=== PATIENT | male | born 1985 | race Caucasian/White ===

== ENCOUNTER → 2021-12-11 11:25 | Outpatient (BNVA) | payer MEDICAID, SELFPAY | PROVIDERS: Family Provider Internal Medicine Cardiovascular Disease; Visit Provider Family Medicine | DX: Z68.30 Body mass index [BMI] 30.0-30.9, adult (principal); F15.11 Other stimulant abuse, in remission; F10.91 Alcohol use, unspecified, in remission; F41.9 Anxiety disorder, unspecified; F17.200 Nicotine dependence, unspecified, uncomplicated | CPT/HCPCS: 80053; 80061; 85025 ==

== ENCOUNTER 2021-12-29 13:43 | Emergency (ER) | payer MEDICAID, SELFPAY ==
[2021-12-29 14:01] VITALS: BP 133/72; PULSE 91; RESP 18; TEMP 36.4; O2SAT 98
--- NOTE | 2021-12-29 14:29 | ED_ITS ---
HPI - Back Pain/Injury General: Chief Complaint: Back Pain/Injury Stated Complaint: Back pain Time Seen by Provider: 12/29/21 14:11 History of Present Illness: Patient is a 36-year-old male comes to the ED with lower back pain. Symptoms started approximately a week ago. He denies any injury or trauma. He woke up 1 morning with the lower back pain. Pain radiates down into his left thigh. He rates his pain currently a 9 out of 10. Denies any weakness to lower extremities, pelvic anesthesia or any bladder or bowel incontinence. Associated symptoms: Deny abdominal pain, chills, dysuria, fatigue, fever(s), hematuria, nausea or vomiting Review of Systems Const: Denies: fever(s), chills or fatigue Eyes: Denies: change in vision or eye discomfort ENMT: Denies: throat pain, odynophagia, nasal discharge or nasal congestion Card: Denies: chest pain, palpitations, edema, swelling of feet/ankles, dyspnea on exertion or orthopnea Resp: Denies: dyspnea, productive cough or non-productive cough GI: Denies: abdominal pain, nausea, vomiting, diarrhea, constipation or hematochezia : Denies: flank pain, difficulty urinating, dysuria or hematuria Musc: Reports: back pain; Denies: neck pain or extremity swelling Skin/Breast: Denies: rash or new lesions Neuro: Denies: headache(s), numbness in extremities or weakness in extremities PFS ED PFSH: Medical History Methamphetamine abuse in remission Methamphetamine addiction Family History Grandmother Cancer colon Mother Diabetes Father CAD (coronary artery disease) Denies family history of Clotting disorder Dementia Hyperlipidemia Chronic kidney disease (CKD) Anesthesia complication Bleeding disorder Lung disease Hypertension Stroke Social History Smoking and tobacco status: current every day smoker (3 cigarettes) cigarettes [ Other cigarette details: started at 12yo. currently 1/ PPD. 24PY] Alcohol intake: former Year of sobriety/quit date alcohol: 2021 Former alcohol use details: oanh of alcohol/day x 5 years. stopped 06/27. stopped due to girlfriend. Desire information about alcohol rehabilitation?: No Counseling given: No Desire information about substance/drug rehabilitation?: No Counseling given: No Lives independently: Yes service: No Current occupational status: unemployed History of recent travel: No Current gender identity: Male Physical Exam Const: COMMON NORMALS: no acute distress, patient oriented x3 and alert GENERAL APPEARANCE: cooperative and comfortable HENMT: COMMON NORMALS: normocephalic HEAD & SCALP: normocephalic MOUTH: Normal oral and palatal mucosa present THROAT: posterior oropharynx normal and uvula midline Neck/C-Spine: COMMON NORMALS: supple GENERAL: Yes normal visual inspection Resp: COMMON NORMALS: normal respiratory effort, No retractions, No use of accessory muscles and clear to auscultation bilaterally AUSCULTATION: clear to auscultation bilaterally Cardio: COMMON NORMALS: regular rate, regular rhythm, S1 normal heart sound present, S2 normal heart sound present, No gallops present (Cardio), No clicks present (Cardio), No murmurs present (Cardio) and Peripheral pulses 2+ throughout RATE: regular rate RHYTHM: regular rhythm HEART SOUNDS: S1 normal heart sound present and S2 normal heart sound present PERIPHERAL PULSES: Peripheral pulses 2+ throughout GI: COMMON NORMALS: Normal to inspection, nondistended, normoactive bowel sounds present, Soft to palpation, non-tender and no masses PALPATION: Yes Soft to palpation : COMMON NORMALS: Yes no CVA tenderness BLADDER/KIDNEY EXAM: Yes no CVA tenderness Back/Pelvis: COMMON NORMALS: no CVA tenderness LUMBAR SPINE/LOWER BACK: Yes paraspinal muscle tenderness Lumbar paraspinal muscle tenderness: bilateral Bilateral lumbar paraspinal muscle tenderness: L4 and L5 Extremity: COMMON NORMALS: normal to inspection Neuro: COMMON NORMALS: patient oriented x3 SENSORIUM/ORIENTATION: Yes alert GAIT: Yes Normal gait present Skin: GENERAL SKIN EXAM: dry skin Course Vital Signs: Vital signs: Vital Signs Temperature 97.5 F L 12/29/21 14:01 Pulse Rate 91 12/29/21 14:01 Respiratory Rate 18 12/29/21 14:01 Blood Pressure 133/72 12/29/21 14:01 Pulse Oximetry 98 12/29/21 14:01 Oxygen Delivery Me thod 12/29/21 14:01 MDM - Back Pain/Injury Medical Decision Making Patient is a 36-year-old male comes to the ED with lower back pain. Symptoms started approximately a week ago. He denies any injury or trauma. He woke up 1 morning with the lower back pain. Pain radiates down into his left thigh. He rates his pain currently a 9 out of 10. Denies any weakness to lower extremities, pelvic anesthesia or any bladder or bowel incontinence. Vitals are stable. Exam shows some bilateral lumbar paraspinal muscle tenderness but rest of exam is benign. Patient was given a dose of Decadron, Toradol and Norflex here in the ED. He is diagnosed with lumbar radiculopathy and discharged home with a prescription for Celebrex, Flexeril and Medrol Dosepak. Told to follow- up with PCP within the next week for reevaluation. Return ED precautions given. Patient understood and agreed with plan. Discharge Plan Discharge Patient Disposition: Home Clinical Impression: Lumbar radiculopathy Condition: Stable Prescriptions: New Celebrex 100 mg capsule 100 mg PO BID PRN (Reason: pain) Qty: 20 0RF Medrol (Leandro) 4 mg tablets,dose pack See Rx Instructions .ROUTE .COMPLEX Qty: 21 0RF Rx Instructions: orally per package directions cyclobenzaprine 10 mg tablet 10 mg PO BID PRN (Reason: muscle spasm) Qty: 20 0RF Discharge Orders: Discharge ED (Routine); Ordered 12/29/21 Ordered By: Christiano Aviles Referrals: Dyllan Salgado MD [Primary Care Provider] - Discharge Diet: Regular Discharge Activity: Increase activity as tolerated Patient Instructions: Lumbar Radiculopathy (ED) Activity Restrictions/Additional Instructions: Follow-up with medical provider as directed. Take medications as prescribed. Return to the ER or your medical provider if condition worsens. Please read and understand discharge instructions. Thank you for choosing [facility] for your healthcare needs today. Please realize this is an emergency room and that we are providing you with a medical screening exam and this may not be complete and all inclusive of all the testing and or work up that you may need to determine your ailment or severity of your illness. It is very important that you follow up as instructed or that you return to the Emergency Department should you have concerns or if your condition changes or worsens in any way. Coding Level of Care Code ED Vaccine Specialist for Juliana Fwela Exam Comprehensive
[2021-12-29] MEDS: dexamethasone 10 mg/mL INJ IM (14:44)
[2021-12-29] MEDS: orphenadrine 30 mg/mL Inj 2 mL 60 MG IM (14:44)
[2021-12-29] MEDS: ketorolac 60 mg/2 mL INJ IM (14:44)
== END 2021-12-29 15:08 | disposition home or self-care (01) ==
PROVIDERS: Emergency Provider Physician Assistant; PCP Internal Medicine Cardiovascular Disease
DX: M54.16 Radiculopathy, lumbar region (principal); F17.210 Nicotine dependence, cigarettes, uncomplicated
CPT/HCPCS: 96372; 99284; J1100; J1885; J2360

== ENCOUNTER 2022-07-01 09:53 | Outpatient (CLI) | payer MEDICAID, SELFPAY ==
--- NOTE | 2022-07-01 09:58 | XR_ITS ---
WS: [id number] Exam: XR hip RT 2-3V wo/w pel* [id number] Date/Time of Exam: 07/01/2022 9:58 AM Reason For Exam: R hip pain Comparison 01/21/2006 There is moderate degenerative thinning of the joint compartment. No fracture or dislocation. Capsula r calcification noted along the superior acetabulum. XR/XR hip RT 2-3V wo/w pel* [id number] IMPRESSION: 1. Moderate degenerative narrowing of the joint compartment. No fracture or dis location. Articular capsular calcification along the superior lateral acetabulu m.
== END 2022-07-01 09:54 | disposition home or self-care (01) ==
LOC: RAD 09:58
PROVIDERS: PCP Family Medicine; Visit Provider Family Medicine
DX: M25.551 Pain in right hip (principal)
CPT/HCPCS: 73502

== ENCOUNTER → 2022-07-27 10:50 | Outpatient (BNVA) | payer MEDICAID, SELFPAY | PROVIDERS: PCP Family Medicine; Referring Provider Family Medicine; Visit Provider Specialist | DX: M16.11 Unilateral primary osteoarthritis, right hip (principal) | CPT/HCPCS: 73502 ==

== ENCOUNTER 2022-10-19 16:41 | Emergency (ER) | payer MEDICAID, SELFPAY ==
[2022-10-19 17:06] VITALS: BP 159/90; PULSE 121; RESP 20; TEMP 37.9; O2SAT 97; BMI 29.5
--- NOTE | 2022-10-19 17:30 | W.ED.EXTPRO ---
Documented by User: Stevan Mckenzie DO 10/20/22 08:13 HPI - Extremity Problem General: Chief complaint: Extremity Injury, Upper Stated complaint: left side swollen/pain Time Seen by Provider: 10/19/22 17:15 Source: patient Mode of arrival: ambulatory History of Present Illness: 37-year-old male presents emergency room complaining of left forearm discomfort. States it involves his entire forearm along the ulnar ridge when he got up this morning the swelling has decreased now to the point where it is just at the elbow distally to both the midportion of the forearm. No scratches or bites that he has noted. He is concerned he may have gotten bitten by a brown recluse although there is no identifiable nidus of infection at this time. He has had a low-grade fever on arrival here. Denies any vomiting or diarrhea. The joint itself is not tender but the skin in the proximal forearm is exquisitely tender to light touch. He is able to flex and extend pronate and supinate without significant pain. MD Complaint: extremity pain Pain Consistency: constant Location: left and upper extremity Quality: aching Relieving factors: nothing Exacerbating factors: palpation Associated symptoms: Deny arthralgias, chest pain, fever(s), myalgias, rash or short of breath Review of Systems Const: Denies: fever(s) or chills Card: Denies: chest pain, palpitations or irregular heart rhythm Resp: Denies: dyspnea, productive cough or non-productive cough GI: Denies: abdominal pain, nausea or vomiting : Denies: flank pain, dysuria, urinary frequency or urinary urgency Skin/Breast: Denies: rash PFSH ED PFSH: Medical History Anxiety Methamphetamine abuse in remission Methamphetamine addiction Psychiatric care Family History Grandmother Cancer colon Mother Diabetes Father CAD (coronary artery disease) Denies family history of Clotting disorder Dementia Hyperlipidemia Chronic kidney disease (CKD) Anesthesia complication Bleeding disorder Lung disease Hypertension Stroke Social History Smoking and tobacco status: current every day smoker (3 cigarettes) cigarettes [ Other cigarette details: started at 12yo. currently 1/4 PPD. 24PY] Alcohol intake: former Year of sobriety/quit date alcohol: 2021 Former alcohol use details: oanh of alcohol/day x 5 years. stopped 06/27. stopped due to girlfriend. Desire information about alcohol rehabilitation?: No Counseling given: No Substance/Drug Use: former Desire information about substance/drug rehabilitation?: No Counseling given: No Lives independently: Yes service: No Current occupational status: unemployed Current gender identity: Male Physical Exam Const: GENERAL APPEARANCE: cooperative and comfortable ORIENTATION/CONSCIOUSNESS: Yes awake, Yes oriented to person, Yes oriented to place and Yes oriented to time HENMT: COMMON NORMALS: normocephalic, atraumatic and hearing grossly normal bilaterally HEAD & SCALP: normocephalic and atraumatic Resp: COMMON NORMALS: normal respiratory effort, No retractions, No use of accessory muscles and clear to auscultation bilaterally AUSCULTATION: clear to auscultation bilaterally Cardio: COMMON NORMALS: regular rate, regular rhythm and No murmurs present (Cardio) RATE: regular rate RHYTHM: regular rhythm GI: COMMON NORMALS: Soft to palpation and No hepatosplenomegaly present AUSCULTATION: Yes normoactive bowel sounds PALPATION: Yes Soft to palpation, No Tenderness to palpation present (GI), No Guarding due to palpation present (GI) and Yes No hepatosplenomegaly present Extremity: OTHER: Mild induration in the medial aspect of the left forearm the skin is thickened inflamed there is no obvious nidus of infection abrasions or puncture pickard. No palpable abscess. Palpable epitrochlear nodes no axillary nodes neurovascularly intact. Neuro: SENSORIUM/ORIENTATION: Yes oriented to person, Yes oriented to place and Yes oriented to time Skin: COMMON NORMALS: no rashes or lesions noted GENERAL SKIN EXAM: no rashes or lesions noted Course Vital Signs: Vital signs: Vital Signs Temperature 100.3 F H 10/19/22 17:06 Pulse Rate 95 10/19/22 20:05 Respiratory Rate 20 H 10/19/22 17:06 Blood Pressure 138/80 10/19/22 20:05 Pulse Oximetry 92 10/19/22 20:05 Oxygen Delivery Me thod Room Air 10/19/22 19:30 MDM - Extremity (Nontraumatic) Medical Decision Making Care signed out to Dr. Rios at change of shift. See final notes for diagnosis and disposition. 37-year-old male checked out to me by Dr. Wells at shift change. I reexamined this patient. He has tenderness and swelling distal to the medial epicondyle of his humerus. He does not have a joint effusion on exam. He has normal range of motion of his elbow that is painless. He has no signs of compartment syndrome, with ability to flex and extend his fingers fully. He is tender to some degree. There is no fluctuant mass indicative of abscess. There is some streaking. He has had a dose of vancomycin here. His white blood cell count is only 11. His lactic acid is 1.3. He will be prescribed Bactrim, 2 twice daily for 14 days. Warning signs of joint infection, or worsening infection were given, and patient to return for any of those. Lab Data 10/19/22 17:42 10/19/22 17:42 Laboratory Results WBC 11.0 10^3/uL (4.0-10.0) H 10/19/22 17: RBC 5.02 10^6/uL (4.1-5.3) 10/19/22 17:42 Hgb 15.3 g/dL (11.7-16.6) 10/19/22 17: Hct 44.8 % (42.0-52.0) 10/19/22 17: MCV 89.2 fl (80-94) 10/19/22 17:42 MCH 30.5 pg (28.0-34.0) 10/19/22 17: MCHC 34.2 g/dL (30.0-36.0) 10/19/22 17: RDW 11.9 % (12.1-15.1) L 10/19/22 17:42 Plt Count 236 10^3/cmm (130-400) 10/19/22 17: MPV 8.6 fL (7.4-10.4) 10/19/22 17: Neut % (Auto) 74.4 % 10/19/22 17: Lymph % (Auto) 13.9 % 10/19/22 17: [place] % (Auto) 10.3 % 10/19/22 17: Eos % (Auto) 0.8 % 10/19/22 17: Baso % (Auto) 0.2 % 10/19/22 17:42 Neut # (Auto) 8.16 10^3/uL (1.8-7.7) H 10/19/22 17:42 Lymph # (Auto) 1.5 10^3/uL (0.8-4.8) 10/19/22 17:42 [place] # (Auto) 1.1 10^3/uL (0.2-0.9) H 10/19/22 17:42 Eos # (Auto) 0.1 10^3/uL (0.0-0.8) 10/19/22 17:42 Baso # (Auto) 0.0 10^3/uL (0.0-0.1) 10/19/22 17:42 Nucleated RBC % (auto) 0 % 10/19/22 17:42 Nucleated RBCs # 0.0 /100WBC 10/19/22 17:42 Sodium 136 mmol/L (136-145) 10/19/22 17:42 Potassium 3.6 mmol/L (3.5-5.1) 10/19/22 17:42 Chloride 102 mmol/L (98-107) 10/19/22 17:42 Carbon Dioxide 22 mmol/L (22-29) 10/19/22 17:42 Anion Gap 15.6 (5-19) 10/19/22 17:42 BUN 17 mg/dL (6-20) 10/19/22 17:42 Creatinine 1.0 mg/dL (0.7-1.2) 10/19/22 17:42 GFR Calculation 84.1 mL/min (90-130) L 10/19/22 17:42 Glucose 117 mg/dL (65-115) H 10/19/22 17:42 Calculated Osmolality 285 mOsm/kg (285-295) 10/19/22 17:42 Lactic Acid 1.3 mmol/L (0.5-2.2) 10/19/22 17:42 Calcium 8.9 mg/dL (8.5-10.5) 10/19/22 17:42 Total Bilirubin 1.1 mg/dL (0.15-1.2) 10/19/22 17:42 AST 30 U/L (0-40) 10/19/22 17:42 ALT 52 U/L (0-41) H 10/19/22 17:42 Alkaline Phosphatase 104 U/L (40-130) 10/19/22 17:42 Total Protein 7.6 g/dL (6.6-8.7) 10/19/22 17:42 Albumin 4.5 g/dL (3.5-5.2) 10/19/22 17:42 Globulin 3.1 g/dL (1.3-4.6) 10/19/22 17:42 Discharge Plan Discharge Patient Disposition: Home Clinical Impression: Cellulitis of left forearm Condition: Stable Prescriptions: New Bactrim DS 800-160 mg tablet 2 tab PO BID 14 Days Qty: 56 0RF No Action omeprazole 20 mg capsule,delayed release(DR/EC) 20 mg PO DAILY 28 Days Qty: 90 1RF meloxicam 15 mg tablet 15 mg PO DAILY Qty: 90 1RF bupropion HCl [Wellbutrin XL] 300 mg tablet extended release 24 hr 300 mg PO DAILY Qty: 30 1RF Discharge Orders: Discharge ED (Routine); Ordered 10/19/22 Ordered By: Fran Rios Referrals: Warren Roman MD [Primary Care Provider] - 1-3 days Patient Instructions: Cellulitis (ED), Pain Management Activity Restrictions/Additional Instructions: Antibiotics as directed. Return for worsening pain, swelling, redness, pain with movement of fingers despite at least 2-3 doses of antibiotics. Return also for fever despite 2-3 doses of antibiotics. Follow-up with your doctor for a wound check later this week. Coding Level of Care Code ED Director Of Women'S Services for Chg Fwd Documented by User: Fran Rios DO 10/19/22 20:28 HPI - Extremity Problem General: Chief complaint: Extremity Injury, Upper Stated complaint: left side swollen/pain Time Seen by Provider: 10/19/22 17:15 PFSH ED PFSH: Medical History Anxiety Methamphetamine abuse in remission Methamphetamine addiction Psychiatric care Family History Grandmother Cancer colon Mother Diabetes Father CAD (coronary artery disease) Denies family history of Clotting disorder Dementia Hyperlipidemia Chronic kidney disease (CKD) Anesthesia complication Bleeding disorder Lung disease Hypertension Stroke Social History Smoking and tobacco status: current every day smoker (3 cigarettes) cigarettes [ Other cigarette details: started at 12yo. currently 1/ PPD. 24PY] Alcohol intake: former Year of sobriety/quit date alcohol: 2021 Former alcohol use details: oanh of alcohol/day x 5 years. stopped 06/27. stopped due to girlfriend. Desire information about alcohol rehabilitation?: No Counseling given: No Substance/Drug Use: former Desire information about substance/drug rehabilitation?: No Counseling given: No Lives independently: Yes service: No Current occupational status: unemployed Current gender identity: Male Course Vital Signs: Vital signs: Vital Signs Temperature 100.3 F H 10/19/22 17:06 Pulse Rate 95 10/19/22 20:05 Respiratory Rate 20 H 10/19/22 17:06 Blood Pressure 138/80 10/19/22 20:05 Pulse Oximetry 92 10/19/22 20:05 Oxygen Delivery Me thod Room Air 10/19/22 19:30 MDM - Extremity (Nontraumatic) Medical Decision Making 37-year-old male checked out to me by Dr. Wells at shift change. I reexamined this patient. He has tenderness and swelling distal to the medial epicondyle of his humerus. He does not have a joint effusion on exam. He has normal range of motion of his elbow that is painless. He has no signs of compartment syndrome, with ability to flex and extend his fingers fully. He is tender to some degree. There is no fluctuant mass indicative of abscess. There is some streaking. He has had a dose of vancomycin here. His white blood cell count is only 11. His lactic acid is 1.3. He will be prescribed Bactrim, 2 twice daily for 14 days. Warning signs of joint infection, or worsening infection were given, and patient to return for any of those. Lab Data 10/19/22 17:42 10/19/22 17:42 Laboratory Results WBC 11.0 10^3/uL (4.0-10.0) H 10/19/22 17:42 RBC 5.02 10^6/uL (4.1-5.3) 10/19/22 17:42 Hgb 15.3 g/dL (11.7-16.6) 10/19/22 17:42 Hct 44.8 % (42.0-52.0) 10/19/22 17:42 MCV 89.2 fl (80-94) 10/19/22 17:42 MCH 30.5 pg (28.0-34.0) 10/19/22 17:42 MCHC 34.2 g/dL (30.0-36.0) 10/19/22 17:42 RDW 11.9 % (12.1-15.1) L 10/19/22 17:42 Plt Count 236 10^3/cmm (130-400) 10/19/22 17:42 MPV 8.6 fL (7.4-10.4) 10/19/22 17:42 Neut % (Auto) 74.4 % 10/19/22 17:42 Lymph % (Auto) 13.9 % 10/19/22 17:42 [place] % (Auto) 10.3 % 10/19/22 17:42 Eos % (Auto) 0.8 % 10/19/22 17:42 Baso % (Auto) 0.2 % 10/19/22 17:42 Neut # (Auto) 8.16 10^3/uL (1.8-7.7) H 10/19/22 17:42 Lymph # (Auto) 1.5 10^3/uL (0.8-4.8) 10/19/22 17:42 [place] # (Auto) 1.1 10^3/uL (0.2-0.9) H 10/19/22 17:42 Eos # (Auto) 0.1 10^3/uL (0.0-0.8) 10/19/22 17:42 Baso # (Auto) 0.0 10^3/uL (0.0-0.1) 10/19/22 17:42 Nucleated RBC % (auto) 0 % 10/19/22 17:42 Nucleated RBCs # 0.0 /100WBC 10/19/22 17:42 Sodium 136 mmol/L (136-145) 10/19/22 17:42 Potassium 3.6 mmol/L (3.5-5.1) 10/19/22 17:42 Chloride 102 mmol/L (98-107) 10/19/22 17:42 Carbon Dioxide 22 mmol/L (22-29) 10/19/22 17:42 Anion Gap 15.6 (5-19) 10/19/22 17:42 BUN 17 mg/dL (6-20) 10/19/22 17:42 Creatinine 1.0 mg/dL (0.7-1.2) 10/19/22 17:42 GFR Calculation 84.1 mL/min (90-130) L 10/19/22 17:42 Glucose 117 mg/dL (65-115) H 10/19/22 17:42 Calculated Osmolality 285 mOsm/kg (285-295) 10/19/22 17:42 Lactic Acid 1.3 mmol/L (0.5-2.2) 10/19/22 17:42 Calcium 8.9 mg/dL (8.5-10.5) 10/19/22 17:42 Total Bilirubin 1.1 mg/dL (0.15-1.2) 10/19/22 17:42 AST 30 U/L (0-40) 10/19/22 17:42 ALT 52 U/L (0-41) H 10/19/22 17:42 Alkaline Phosphatase 104 U/L (40-130) 10/19/22 17:42 Total Protein 7.6 g/dL (6.6-8.7) 10/19/22 17:42 Albumin 4.5 g/dL (3.5-5.2) 10/19/22 17:42 Globulin 3.1 g/dL (1.3-4.6) 10/19/22 17:42 Discharge Plan Discharge Patient Disposition: Home Clinical Impression: Cellulitis of left forearm Condition: Stable Prescriptions: New Bactrim DS 800-160 mg tablet 2 tab PO BID 14 Days Qty: 56 0RF No Action omeprazole 20 mg capsule,delayed release(DR/EC) 20 mg PO DAILY 28 Days Qty: 90 1RF meloxicam 15 mg tablet 15 mg PO DAILY Qty: 90 1RF bupropion HCl [Wellbutrin XL] 300 mg tablet extended release 24 hr 300 mg PO DAILY Qty: 30 1RF Discharge Orders: Discharge ED (Routine); Ordered 10/19/22 Ordered By: Fran Rios Referrals: Warren Roman MD [Primary Care Provider] - 1-3 days Patient Instructions: Cellulitis (ED), Pain Management Activity Restrictions/Additional Instructions: Antibiotics as directed. Return for worsening pain, swelling, redness, pain with movement of fingers despite at least 2-3 doses of antibiotics. Return also for fever despite 2-3 doses of antibiotics. Follow-up with your doctor for a wound check later this week. Coding Level of Care Code ED Director Of Women'S Services for Juliana Smith
[2022-10-19 17:59] LABS: Basophils % 0.2 %; Eosinophils # 0.1 10^3/uL (0.0-0.8); Eosinophils % 0.8 %; Hematocrit 44.8 % (42.0-52.0); Hemoglobin 15.3 g/dL (11.7-16.6); Lymphocytes # 1.5 10^3/uL (0.8-4.8); Lymphocytes % 13.9 %; Mean Corpuscular HGB Conc 34.2 g/dL (30.0-36.0); Mean Corpuscular Hemoglobin 30.5 pg (28.0-34.0); Mean Corpuscular Volume 89.2 fl (80-94); Mean Platelet Volume 8.6 fL (7.4-10.4); Monocytes # 1.1 10^3/uL (0.2-0.9); Monocytes % 10.3 %; Neutrophils # 8.16 10^3/uL (1.8-7.7); Neutrophils % 74.4 %; Nucleated Red Blood Cells % 0 %; Platelet Count 236 10^3/cmm (130-400); Red Blood Count 5.02 10^6/uL (4.1-5.3); Red Cell Distribution Width 11.9 % (12.1-15.1)
[2022-10-19] MEDS: vancomycin 1,000 MG in sodium chloride 0.9% 250 ML 250 MG IV (18:10)
[2022-10-19 18:15] LABS: Lactic Sepsis W/Reflex 1.3 mmol/L (0.5-2.2)
[2022-10-19 18:24] LABS: Alanine Aminotransferase 52 U/L (0-41); Albumin Level 4.5 g/dL (3.5-5.2); Alkaline Phosphatase 104 U/L (40-130); Anion Gap 15.6 (5-19); Aspartate Amino Transferase 30 U/L (0-40); Blood Urea Nitrogen 17 mg/dL (6-20); Calcium 8.9 mg/dL (8.5-10.5); Carbon Dioxide 22 mmol/L (22-29); Chloride 102 mmol/L (98-107); Creatinine Clr Calc Pharmacy 130.2527; Globulin 3.1 g/dL (1.3-4.6); Glomerular Filtration Rate 84.1 mL/min (90-130); Glucose 117 mg/dL (65-115); Osmolality Calculated 285 mOsm/kg (285-295); Potassium 3.6 mmol/L (3.5-5.1); Sodium 136 mmol/L (136-145); Total Bilirubin 1.1 mg/dL (0.15-1.2); Total Protein 7.6 g/dL (6.6-8.7)
[2022-10-19 18:44] VITALS: BP 162/99; PULSE 97; O2SAT 96
[2022-10-19 19:00] VITALS: BP 120/84; PULSE 104; O2SAT 94
[2022-10-19 19:30] VITALS: BP 138/83; PULSE 107; O2SAT 94
[2022-10-19 20:05] VITALS: BP 138/80; PULSE 95; O2SAT 92
== END 2022-10-19 20:05 | disposition home or self-care (01) ==
PROVIDERS: Family Medicine; Emergency Provider Emergency Medicine; PCP Family Medicine
DX: L03.114 Cellulitis of left upper limb (principal); F17.210 Nicotine dependence, cigarettes, uncomplicated
CPT/HCPCS: 36415; 80053; 83605; 85025; 87040; 96365; 99284; J3370; J7050

== ENCOUNTER 2022-10-26 15:26 | Inpatient (IN) | payer MEDICAID, SELFPAY ==
[2022-10-26 15:29] VITALS: BMI 30.2
[2022-10-26 15:34] VITALS: BP 150/81; PULSE 80; RESP 16; TEMP 36.8; O2SAT 97
--- NOTE | 2022-10-26 15:59 | PC.PHAR ---
pt states he takes care of his own medications-pt states he is out patient with [facility]-pt states he takes mobic [facility] rx for the pt rx written 09/30/22-pt states he takes prilosec 20mg daily rx written 09/30/22 [facility] rx on hold-notes are made in the pharmacy comments
--- NOTE | 2022-10-26 16:01 | ED.C_ITS ---
HPI - Psych General: Chief Complaint: Psychiatric Symptoms Stated Complaint: psych eval Time Seen by Provider: 10/26/22 15:43 Source: patient Mode of arrival: ambulatory History of Present Illness: 37-year-old male presents emergency room complaining of auditory hallucinations he has had auditory hallucinations for some time, worsening over the last 3 days. He is on bupropion 300 mg in AM. Patient is having command hallucina tions to harm others to aggravate him in any way. He has no homicidal intent no suicidal intent. He is currently on Wellbutrin 300 daily. He denies missing out any of his medications or having any recent changes. He was seen here earlier this month for cellulitis and started on Bactrim that is improving. He has been [facility] he states he has been clean of methamphetamine for a month. Onset (ago): day(s) Associated symptoms: Reports auditory hallucinations; Deny visual hallucinations, delusions, depression, homicidal ideation, suicidal ideation or racing thoughts Treatments prior to arrival: none Review of Systems Const: Denies: fever(s), chills, fatigue or malaise Card: Denies: chest pain or edema Resp: Denies: dyspnea, productive cough or non-productive cough GI: Denies: abdominal pain, nausea, vomiting or diarrhea : Denies: flank pain, dysuria, urinary frequency or urinary urgency Skin/Breast: Denies: rash or pruritus Psych: Reports: auditory hallucinations; Denies: depression, visual hallucinations, suicidal ideation or homicidal ideation [facility] ED PFSH: Medical History Anxiety Methamphetamine abuse in remission Methamphetamine addiction Psychiatric care Family History Grandmother Cancer colon Mother Diabetes Father CAD (coronary artery disease) Denies family history of Clotting disorder Dementia Hyperlipidemia Chronic kidney disease (CKD) Anesthesia complication Bleeding disorder Lung disease Hypertension Stroke Social History Smoking and tobacco status: current every day smoker (3 cigarettes) cigarettes [ Other cigarette details: started at 12yo. currently 1/ PPD. 24PY] Alcohol intake: former Year of sobriety/quit date alcohol: 2021 Former alcohol use details: oanh of alcohol/day x 5 years. stopped 06/27. stopped due to girlfriend. Desire information about alcohol rehabilitation?: No Counseling given: No Substance/Drug Use: former Desire information about substance/drug rehabilitation?: No Counseling given: No Lives independently: Yes service: No Current occupational status: unemployed Current gender identity: Male Physical Exam Const: GENERAL APPEARANCE: cooperative and comfortable ORIENTATION/CONSCIOUSNESS: Yes awake, Yes oriented to person, Yes oriented to place and Yes oriented to time HENMT: COMMON NORMALS: normocephalic, atraumatic and hearing grossly normal bilaterally HEAD & SCALP: normocephalic and atraumatic Resp: COMMON NORMALS: normal respiratory effort, No retractions, No use of accessory muscles and clear to auscultation bilaterally AUSCULTATION: clear to auscultation bilaterally Cardio: COMMON NORMALS: regular rate, regular rhythm and No murmurs present (Cardio) RATE: regular rate RHYTHM: regular rhythm GI: COMMON NORMALS: Soft to palpation and No hepatosplenomegaly present AUSCULTATION: Yes normoactive bowel sounds PALPATION: Yes Soft to palpation, No Tenderness to palpation present (GI), No Guarding due to palpation present (GI) and Yes No hepatosplenomegaly present Extremity: COMMON NORMALS: normal to inspection, capillary refill normal, no clubbing, cyanosis or edema, no calf tenderness and no pedal edema Neuro: SENSORIUM/ORIENTATION: Yes oriented to person, Yes oriented to place and Yes oriented to time Psych: THOUGHT CONTENT: No delusions Skin: COMMON NORMALS: no rashes or lesions noted GENERAL SKIN EXAM: no rashes or lesions noted Course Vital Signs: Vital signs: Vital Signs Temperature 98.2 F 10/26/22 15:34 Pulse Rate 80 10/26/22 15:34 Respiratory Rate 16 10/26/22 15:34 Blood Pressure 150/81 10/26/22 15:34 Pulse Oximetry 97 10/26/22 15:34 Oxygen Delivery Me thod Room Air 10/26/22 15:34 MDM - Psych Medical Decision Making Patient not homicidal or suicidal but is having auditory hallucinations with command hallucinations advising to harm others. He has no particular person in mind or particular thing he plans to do to anyone. He states the voices are just telling him to beat up anyone that aggravates him. He is calm and well behaved at this time does not appear to be under the influence. Discussed with Dr. Deluna he recommends admission orders written. Medical Records I reviewed the patient's medical records. Lab Data I reviewed the patient's lab results. 10/26/22 16:03 10/26/22 16:03 Laboratory Results WBC 9.9 10^3/uL (4.0-10.0) 10/26/22 16:03 RBC 5.05 10^6/uL (4.1-5.3) 10/26/22 16:03 Hgb 15.2 g/dL (11.7-16.6) 10/26/22 16:03 Hct 45.5 % (42.0-52.0) 10/26/22 16:03 MCV 90.1 fl (80-94) 10/26/22 16:03 MCH 30.1 pg (28.0-34.0) 10/26/22 16:03 MCHC 33.4 g/dL (30.0-36.0) 10/26/22 16:03 RDW 12.0 % (12.1-15.1) L 10/26/22 16:03 Plt Count 405 10^3/cmm (130-400) H 10/26/22 16:03 MPV 8.0 fL (7.4-10.4) 10/26/22 16:03 Neut % (Auto) 69.3 % 10/26/22 16:03 Lymph % (Auto) 21.3 % 10/26/22 16:03 [place] % (Auto) 7.0 % 10/26/22 16:03 Eos % (Auto) 1.3 % 10/26/22 16:03 Baso % (Auto) 0.5 % 10/26/22 16:03 Neut # (Auto) 6.87 10^3/uL (1.8-7.7) 10/26/22 16:03 Lymph # (Auto) 2.1 10^3/uL (0.8-4.8) 10/26/22 16:03 [place] # (Auto) 0.7 10^3/uL (0.2-0.9) 10/26/22 16:03 Eos # (Auto) 0.1 10^3/uL (0.0-0.8) 10/26/22 16:03 Baso # (Auto) 0.1 10^3/uL (0.0-0.1) 10/26/22 16:03 Nucleated RBC % (auto) 0 % 10/26/22 16:03 Nucleated RBCs # 0.0 /100WBC 10/26/22 16:03 Discharge Plan Discharge Patient Disposition: Admitted As Inpatient Admit Provider: Edy Deluna Clinical Impression: Acute psychosis, Alcohol use disorder, severe, in early remission, dependence, Methamphetamine abuse in remission Condition: Stable Prescriptions: No Action omeprazole 20 mg capsule,delayed release(DR/EC) 20 mg PO DAILY 28 Days Qty: 90 1RF meloxicam 15 mg tablet 15 mg PO DAILY Qty: 90 1RF Wellbutrin XL 300 mg tablet extended release 24 hr 300 mg PO QAM ibuprofen 200 mg Tablet 800 mg PO Q6H PRN (Reason: Pain) sulfamethoxazole-trimethoprim [Bactrim DS] 800-160 mg tablet 2 tab PO BID 14 Days Qty: 56 0RF Rx Instructions: for 14 days (rx filled 10/20/22) Referrals: Warren Roman MD [Primary Care Provider] - Coding Level of Care Code ED [employer] for Juliana Smith
[2022-10-26 16:13] LABS: Basophils # 0.1 10^3/uL (0.0-0.1); Basophils % 0.5 %; Eosinophils # 0.1 10^3/uL (0.0-0.8); Eosinophils % 1.3 %; Hematocrit 45.5 % (42.0-52.0); Hemoglobin 15.2 g/dL (11.7-16.6); Lymphocytes # 2.1 10^3/uL (0.8-4.8); Lymphocytes % 21.3 %; Mean Corpuscular HGB Conc 33.4 g/dL (30.0-36.0); Mean Corpuscular Hemoglobin 30.1 pg (28.0-34.0); Mean Corpuscular Volume 90.1 fl (80-94); Monocytes # 0.7 10^3/uL (0.2-0.9); Neutrophils # 6.87 10^3/uL (1.8-7.7); Neutrophils % 69.3 %; Nucleated Red Blood Cells % 0 %; Platelet Count 405 10^3/cmm (130-400); Red Blood Count 5.05 10^6/uL (4.1-5.3); White Blood Count 9.9 10^3/uL (4.0-10.0)
[2022-10-26 16:36] LABS: Alanine Aminotransferase 44 U/L (0-41); Albumin Level 4.1 g/dL (3.5-5.2); Alkaline Phosphatase 105 U/L (40-130); Anion Gap 12.1 (5-19); Aspartate Amino Transferase 20 U/L (0-40); Blood Urea Nitrogen 12 mg/dL (6-20); Calcium 8.9 mg/dL (8.5-10.5); Carbon Dioxide 27 mmol/L (22-29); Chloride 103 mmol/L (98-107); Globulin 2.9 g/dL (1.3-4.6); Glomerular Filtration Rate 84.1 mL/min (90-130); Glucose 96 mg/dL (65-115); Osmolality Calculated 286 mOsm/kg (285-295); Potassium 4.1 mmol/L (3.5-5.1); Sodium 138 mmol/L (136-145); Total Bilirubin 0.2 mg/dL (0.15-1.2)
[2022-10-26 16:37] LABS: Acetaminophen < 5.0 ug/mL (10-30); Alcohol Level < 10 mg/dL (0-10); Salicylate < 0.3 mg/dL (3-10)
[2022-10-26 17:16] LABS: Add Urine Microscopic? NO; Charge for UA Resulting for Rev
[2022-10-26 17:32] LABS: Urine Appearance Clear (CLEAR); Urine Color Straw (Yellow); pH Urine 5 (5-7)
[2022-10-26 17:33] LABS: Bilirubin Urine Neg (Negative); Blood Urine Neg (Negative); Glucose Urine UA Norm (Normal); Ketones Urine Negative (Negative); Leukocyte Esterase Urine Negative (Negative); Nitrate Urine Negative (Negative); Protein Urine Neg (Negative); Urobilinogen Urine Norm (Negative)
[2022-10-26 17:34] LABS: Amphetamines Screen Urine Negative (Negative); Barbiturates Screen Urine Negative (Negative); Benzodiazepines Screen Urine Negative (Negative); Cocaine Screen Urine Negative (Negative); Opiate Screen Urine Negative (Negative); PCP Screen Urine Negative (Negative); THC Screen Urine Negative (Negative)
[2022-10-26 17:43] VITALS: BP 125/85; PULSE 74; RESP 16; TEMP 36.5; O2SAT 100
--- NOTE | 2022-10-26 18:28 | PC.NURSE ---
pt arrived to the ED with complaints of auditory hallucinations telling him to hurt other people. pt states that it is not specific people just people in general. pt states that this has been going on for about 3 days. pt has an ankle monitor for drug court.
[2022-10-26 18:58] LABS: Adenovirus Not Detected (NOT DETECT); Chlamydia Pneumoniae Not Detected (NOT DETECT); Coronavirus 229E,HKU1,NL63,OC4 Not Detected (NOT DETECT); Human Metapneumovirus Not Detected (NOT DETECT); Human Rhinovirus/Enterovirus Not Detected (NOT DETECT); Influenza A Not Detected (NOT DETECT); Influenza A H1 Not Detected (NOT DETECT); Influenza A H1-2009 Not Detected (NOT DETECT); Influenza A H3 Not Detected (NOT DETECT); Influenza B Not Detected (NOT DETECT); Mycoplasma Pneumoniae Not Detected (NOT DETECT); Parainfluenza Virus Type 1 Not Detected (NOT DETECT); Parainfluenza Virus Type 2 Not Detected (NOT DETECT); Parainfluenza Virus Type 3 Not Detected (NOT DETECT); Parainfluenza Virus Type 4 Not Detected (NOT DETECT); Respiratory Syncytial Virus A Not Detected (NOT DETECT); Respiratory Syncytial Virus B Not Detected (NOT DETECT); SARS-COV-2 Not Detected (NOT DETECT)
[2022-10-26 20:51] VITALS: BP 106/75; PULSE 66; RESP 17; TEMP 36.8; O2SAT 97
[2022-10-27 06:00] VITALS: BP 118/71; PULSE 66; RESP 18; O2SAT 98
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
[2022-10-27 14:00] VITALS: BP 130/79; PULSE 83; RESP 16; TEMP 36.6; O2SAT 96
[2022-10-27] MEDS: ARIPiprazole 10 mg Tablet PO (20:39)
[2022-10-27 21:42] VITALS: BP 144/81; PULSE 73; RESP 18; TEMP 36.7; O2SAT 96
[2022-10-28 06:00] VITALS: BP 112/65; PULSE 81; RESP 15; O2SAT 92
[2022-10-28] MEDS: ARIPiprazole 10 mg Tablet PO (08:20)
[2022-10-28 14:00] VITALS: BP 120/75; PULSE 72; RESP 18; TEMP 36.7; O2SAT 97
--- NOTE | 2022-10-28 17:56 | W.PM.NPUPNS ---
Subjective NPU Subjective: Patient presented today reporting that he is doing fine. He reports that he received the Abilify and reports he feels it is helping him and he is feeling less anxious and experiencing less perceptual disturbances. He denies any side effects to the medication and we discussed monitoring for few days and then returning him to his previous outpatient set up. Mental Status Exam MSE Comments: This is an overweight versus obese, white male, in hospital scrubs, with adequate grooming and limited eye contact. No abnormal movements, except for mild psychomotor retardation. Cooperative with exam in mild distress. Speech was decreased rate and volume. Mood described as good; affect congruent. Thought process, organized. Thought content: patient denied any suicidal or homicidal ideation, there were no delusions reported or noted, patient denied any visual hallucinations. Attention, concentration, and memory appeared intact, but none were formally tested. Alert and oriented times three. Insight and judgment are fair. Impulse control is limited. Vitals/I&O/Wt Last Vital Signs Temp 98.5 F 10/28/22 20:44 Pulse 87 10/28/22 20:44 Resp 17 10/28/22 20:44 BP 123/82 10/28/22 20:44 Pulse Ox 96 10/28/22 20:44 O2 Del Method Room Air 10/28/22 20:44 Data NPU 10/26/22 16:03 10/26/22 16:03 A&P Assessment and plan (1) Acute psychosis: (2) Nicotine dependence, cigarettes, uncomplicated: (3) Methamphetamine use disorder, severe, in early remission, dependence: (4) Alcohol use disorder, severe, in early remission, dependence: (5) Major depressive disorder, recurrent severe without psychotic features: (6) Anxiety: (7) Gastroesophageal reflux disease: Plan This is a 37-year-old, white male, with a long history of substance abuse/methamphetamine use, currently in outpatient drug rehabilitation, with a more recent history of mental health issues, who presents reporting psychotic symptoms/hearing voices, with a desire to try medication to help with those symptoms. 1. Continue current medications. 2. Started Abilify 10 mg daily p.o. 3. Encourage individual, group, and milieu therapy. 4. Continue q-15-minute checks for safety. 5. Recommend sober living treatment at the highest level of care to which the patient is willing to commit. Involuntary Hold Information 96 Hour Hold: 96 Hour Involuntary Admission: No Attestations NPU Medical Necessity Statement*: Inpatient hospitalization is medically necessary and the clinically appropriate intervention, at this time. We will monitor medications and make changes as indicated. Likely length of stay is 2-4 days. Coding Level of Care Code Acute Code for [facility] Diagnoses Acute psychosis F23 Nicotine dependence, cigarettes, uncomplicated F17.210 Methamphetamine use disorder, severe, in early remission, dependence F15.21 Alcohol use disorder, severe, in early remission, dependence F10.21 Major depressive disorder, recurrent severe without psychotic features F33.2 Anxiety F41.9 Gastroesophageal reflux disease K21.9
[2022-10-28 20:44] VITALS: BP 123/82; PULSE 87; RESP 17; TEMP 36.9; O2SAT 96
[2022-10-29] MEDS: calcium carbonate 500 mg Chew Tablet 1000 MG PO (05:58)
[2022-10-29 06:00] VITALS: BP 112/73; PULSE 80; RESP 16; TEMP 36.7; O2SAT 95
[2022-10-29] MEDS: ARIPiprazole 10 mg Tablet PO (08:04)
[2022-10-29] MEDS: pantoprazole DR 40 mg Tablet PO (12:47)
[2022-10-29 14:00] VITALS: BP 117/73; PULSE 81; RESP 18; TEMP 36.8; O2SAT 93
--- NOTE | 2022-10-29 17:46 | P.NPUPN_ITS ---
Subjective NPU Subjective: Patient presented today continuing to report that things have gotten better. He continues to identify the addition of the Abilify as a gallego factor in his improvement. He endorses a plan to continue it and denies any significant side effects. He reports he has a safe place to return to and will continue outpatient services at [facility]. We discussed the likelihood of discharge in the morning. Mental Status Exam MSE Comments: This is an overweight versus obese, white male, in hospital scrubs, with adequate grooming and limited eye contact. No abnormal movements, except for mild psychomotor retardation. Cooperative with exam in mild distress. Speech was decreased rate and volume. Mood described as good; affect congruent. Thought process, organized. Thought content: patient denied any suicidal or homicidal ideation, there were no delusions reported or noted, patient denied any visual hallucinations. Attention, concentration, and memory appeared intact, but none were formally tested. Alert and oriented times three. Insight and judgment are fair. Impulse control is limited. Vitals/I&O/Wt Last Vital Signs Temp 98.1 F 10/29/22 20:12 Pulse 116 H 10/29/22 20:12 Resp 18 10/29/22 20:12 BP 112/77 10/29/22 20:12 Pulse Ox 98 10/29/22 20:12 O2 Del Method Room Air 10/29/22 20:12 10/29/22 10/29/22 10/30/22 14:59 22:59 06:59 Intake Total 480 / 480 240 / 720 Balance 480 / 480 240 / 720 Data NPU 10/26/22 16:03 10/26/22 16:03 A&P Assessment and plan (1) Acute psychosis: (2) Nicotine dependence, cigarettes, uncomplicated: (3) Methamphetamine use disorder, severe, in early remission, dependence: (4) Alcohol use disorder, severe, in early remission, dependence: (5) Major depressive disorder, recurrent severe without psychotic features: (6) Anxiety: (7) Gastroesophageal reflux disease: Plan This is a 37-year-old, white male, with a long history of substance abuse/methamphetamine use, currently in outpatient drug rehabilitation, with a more recent history of mental health issues, who presents reporting psychotic symptoms/hearing voices, with a desire to try medication to help with those symptoms. 1. Continue current medications. 2. Started Abilify 10 mg daily p.o. 3. Encourage individual, group, and milieu therapy. 4. Continue q-15-minute checks for safety. 5. Recommend sober living treatment at the highest level of care to which the patient is willing to commit. Involuntary Hold Information 96 Hour Hold: 96 Hour Involuntary Admission: No Attestations NPU Medical Necessity Statement*: Inpatient hospitalization is medically necessary and the clinically appropriate intervention, at this time. We will monitor medications and make changes as indicated. Likely length of stay is 1-3 days. Coding Level of Care Code Acute Code for Chg Fwd Diagnoses Acute psychosis F23 Nicotine dependence, cigarettes, uncomplicated F17.210 Methamphetamine use disorder, severe, in early remission, dependence F15.21 Alcohol use disorder, severe, in early remission, dependence F10.21 Major depressive disorder, recurrent severe without psychotic features F33.2 Anxiety F41.9 Gastroesophageal reflux disease K21.9
[2022-10-29 20:12] VITALS: BP 112/77; PULSE 116; RESP 18; TEMP 36.7; O2SAT 98
[2022-10-30 06:00] VITALS: BP 114/84; PULSE 86; RESP 20; TEMP 36.9; O2SAT 97
[2022-10-30] MEDS: pantoprazole DR 40 mg Tablet PO (09:38)
[2022-10-30] MEDS: ARIPiprazole 10 mg Tablet PO (09:38)
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
[2022-10-30 14:01] VITALS: BP 114/84; PULSE 86; RESP 20; TEMP 36.9; O2SAT 97
== END 2022-10-30 14:45 | disposition home or self-care (01) | DRG 897 ==
LOC: ER 16:04 → NP 16:17
PROVIDERS: Admitting Provider Psychiatry & Neurology Psychiatry; Emergency Provider Family Medicine; PCP Family Medicine; Visit Provider Psychiatry & Neurology Psychiatry
DX: F15.21 Other stimulant dependence, in remission (principal); R44.0 Auditory hallucinations; Z81.8 Family history of other mental and behavioral disorders; Z81.4 Family history of other substance abuse and dependence; F17.210 Nicotine dependence, cigarettes, uncomplicated
CPT/HCPCS: 36415; 80053; 80306; 80307; 81003; 85025; 87635; 97150; 97165; 99238; 99285

== ENCOUNTER 2024-08-14 21:38 | Emergency (ER) | payer MEDICAID, SELFPAY ==
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
[2024-08-14 21:58] VITALS: RESP 20
[2024-08-14] MEDS: morphine 4 mg/mL SDV 1 mL IVP (21:58)
[2024-08-14 21:59] VITALS: BP 199/119; PULSE 83; RESP 18; TEMP 36.5; O2SAT 100; BMI 30.2
[2024-08-14] MEDS: mupirocin oint 22 gm 1 APPLIC TOPICAL (21:59)
[2024-08-14] MEDS: tetanus-diphtheria tox (adult) 0.5 mL SDV IM (21:59)
--- NOTE | 2024-08-14 22:15 | PC.NURSE ---
Byrd on arms and face washed with baby shampoo. Wounds dressed with Mupirocin. patient tolerated well.
[2024-08-14] MEDS: HYDROcodone-acetaminophen 5-325 mg Tablet 2 TAB PO (22:41)
[2024-08-14 22:50] VITALS: BP 170/111; PULSE 67; RESP 18; O2SAT 99
--- NOTE | 2024-08-15 08:51 | DCPLANNER ---
Message sent to wound care
--- NOTE | 2024-08-17 11:16 | DCPLANNER ---
faxed referral packet to [facility]
== END 2024-08-14 22:45 | disposition home or self-care (01) ==
PROVIDERS: Emergency Provider Emergency Medicine
DX: T20.04XA Burn of unspecified degree of nose (septum), initial encounter (principal); T20.06XA Burn of unspecified degree of forehead and cheek, initial encounter; T23.002A Burn of unspecified degree of left hand, unspecified site, initial encounter; T23.001A Burn of unspecified degree of right hand, unspecified site, initial encounter; T22.012A Burn of unspecified degree of left forearm, initial encounter; T22.011A Burn of unspecified degree of right forearm, initial encounter; F17.210 Nicotine dependence, cigarettes, uncomplicated; X58.XXXA Exposure to other specified factors, initial encounter
CPT/HCPCS: 90471; 90714; 96374; 99284; J2270; J9999